=== PATIENT | female | born 1990 | race Caucasian/White ===

== ENCOUNTER 2020-12-12 18:46 | Emergency (ER) | payer OTHER ==
[2020-12-12 18:50] VITALS: BP 136/96; PULSE 84; RESP 18; TEMP 98.4
[2020-12-12] MEDS ORDERED: LIDOCAINE 5% PATCH TOPICAL STA (19:31)
[2020-12-12] MEDS ORDERED: KETOROLAC 15 MG/ML 1 ML VIAL IM STA (19:31)
[2020-12-12] MEDS ORDERED: CYCLOBENZAPRINE 10 MG TAB PO STA (19:32)
--- NOTE | 2020-12-12 19:36 | ED ---
Back Pain HPI - General Source: patient Limitations: no limitations <Jesus Barreto - Last Filed: 12/12/20 19:32> <Meka Snider - Last Filed: 12/13/20 00:21> - General Chief Complaint: Back Pain/Injury Stated Complaint: Back pain Time Seen by Provider: 12/12/20 19:07 - History of Present Illness Initial Comments: 30-year-old female presents emergency with a chief complaint back pain. Patient reports she has been his parents in by family for the past several weeks. 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 Patient reports the pain is located in the lower lumbar region with some radiation along the right paraspinal region and along the posterior aspect of the right lower extremity to the foot. She denies any direct injuries to the back. However states the pain is exacerbated in a sitting position and she has over an hour commute to work so the pain seems to be exacerbated during a per iod. She reports the pain is alleviated at rest, or ambulating. She denies any direct traumatic injuries to the back. She does have chronic history of back pain and has been to physical therapy before. Most recent imaging was a year ago. She denies any saddle anesthesia, urinary retention with overflow or bowel incontinence. Denies possibility for . (Jesus Barreto) - Related Data Previous Rx's Medication Instructions Recorded Cyclobenzaprine [Flexeril] 10 mg PO TID PRN #15 tab 12/12/20 Allergies Allergy/AdvReac Type Severity Reaction Status Date / Time No Known Allergies Allergy Verified 12/12/20 19:18 Review of Systems ROS Other: All systems not noted in ROS Statement are negative. <Jesus Barreto - Last Filed: 12/12/20 19:32> ROS Other: All systems not noted in ROS Statement are negative. <Meka Snider - Last Filed: 12/13/20 00:21> ROS Statement: Those systems with pertinent positive or pertinent negative responses have been documented in the HPI. Past Medical History Past Medical History: No Reported History Past Surgical History: No Surgical Hx Reported Smoking Status: Never smoker Past Alcohol Use History: Occasional Past Drug Use History: None Reported <Jesus Barreto - Last Filed: 12/12/20 19:32> General Exam Limitations: no limitations General appearance: alert, in no apparent distress, obese Head exam: Present: atraumatic, normocephalic, normal inspection Eye exam: Present: normal appearance, PERRL, EOMI Pupils: Present: normal accommodation ENT exam: Present: normal exam, normal oropharynx, mucous membranes moist, TM's normal bilaterally, normal external ear exam Neck exam: Present: normal inspection, full ROM. Absent: tenderness Respiratory exam: Present: normal lung sounds bilaterally. Absent: respiratory distress, wheezes, rales Cardiovascular Exam: Present: regular rate, normal rhythm, normal heart sounds GI/Abdominal exam: Present: soft. Absent: distended, tenderness, guarding, rebound Extremities exam: Present: normal inspection, full ROM, normal capillary refill. Absent: tenderness Back exam: Present: normal inspection, full ROM, tenderness, paraspinal tenderness (Right-sided), vertebral tenderness (Lower lumbar). Absent: CVA tenderness (R), CVA tenderness (L) Neurological exam: Present: alert, oriented X3, CN II-XII intact, normal gait Psychiatric exam: Present: normal affect, normal mood Skin exam: Present: warm, dry, intact, normal color <Jesus Barreto - Last Filed: 12/12/20 19:32> Course Vital Signs 12/12/20 18:47 Temperature 98.4 F Pulse Rate 84 Respiratory 18 Rate Blood Pressure 136/96 O2 Sat by Pulse 98 Oximetry Medical Decision Making <Jesus Barreto - Last Filed: 12/12/20 19:32> <Meka Snider - Last Filed: 12/13/20 00:21> - Medical Decision Making 30-year-old male presents to the emergency department with a chief complaint of back pain. Acute on chronic back pain. No concern for cauda equina. The patient was given Toradol, Flexeril, Lidoderm patch. Reevaluation, she reports improvement in symptoms. I suspect lumbar radiculopathy. Able give her prescription for Flexeril. Advised on the side effects of medication. She able to ambulate without difficulty. Advised to follow-up with public affairs specialist. Return parameters were discussed with patient is an attending agreeable. (Jesus Barreto) I was available for consultation in the emergency department. The history and physical exam were done by the midlevel provider. I was consulted for this patients care. I reviewed the case with the midlevel provider and based on their presentation of the patient, I agree with the assessment, medical decision making and plan of care as documented. Chart was dictated using Spreaker dictation software. Attempts were made to correct any dictation errors however some typographical errors may persist. Patient was seen during a national state of emergency due to the Covid-19 pandemic. (Meka Snider) Disposition Is patient prescribed a controlled substance at d/c from ED?: No Time of Disposition: 19:36 <Jesus Barreto - Last Filed: 12/12/20 19:32> <Meka Snider - Last Filed: 12/13/20 00:21> Clinical Impression: Mechanical back pain, Strain of lumbar region Disposition: HOME SELF-CARE Condition: Stable Instructions (If sedation given, give patient instructions): Acute Low Back Pain (ED) Additional Instructions: Please return to the Emergency Department if symptoms worsen or any other concerns. Prescriptions: Cyclobenzaprine [Flexeril] 10 mg PO TID PRN #15 tab PRN Reason: Muscle Spasm Referrals: None,Stated [Primary Care Provider] - 1-2 days Eulalio Greene DO [Doctor of Osteopathic Medicine] - 1-2 days
== END 2020-12-12 19:56 | disposition home or self-care (01) ==
LOC: EC 18:46
DX: S39.012A Strain of muscle, fascia and tendon of lower back, initial encounter (principal); X58.XXXA Exposure to other specified factors, initial encounter
CPT/HCPCS: 99283; 96372; J1885

== ENCOUNTER 2021-03-24 11:40 | Emergency (ER) | payer OTHER ==
[2021-03-24 14:27] VITALS: BP 123/79; PULSE 100; RESP 20; TEMP 98.1
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
--- NOTE | 2021-03-24 15:34 | XR ---
EXAMINATION TYPE: XR chest 2V DATE OF EXAM: 03/24/2021 COMPARISON: NONE HISTORY: Cough and congestion. Covid exposure. TECHNIQUE: Frontal and lateral views of the chest are obtained. FINDINGS: There is no suspicious peripheral focal air space opacity, pleural effusion, or pneumothor ax seen. The cardiac silhouette size is within normal limits. The osseous structures are intact. O verlying bra strap. IMPRESSION: No acute process.
== END 2021-03-24 17:18 | disposition home or self-care (01) ==
LOC: EC 11:40
DX: U07.1 COVID-19 (principal)
CPT/HCPCS: 71046; 87635; 99285